=== PATIENT | male | born 1985 | race African-American/Black ===

== ENCOUNTER → 2019-12-12 | Outpatient (CLI) | payer OTHER ==
--- NOTE | 2019-12-12 12:30 | REP ---
Clinical: Testicular pain. Cyst. Technique: Real time green scale and color Doppler evaluation using linear high frequency transducer. Findings: Large right epididymal head cyst likely related to patient's symptoms measures 3.1 x 2.1 x 2.6 cm. The bilateral testicles are normal/symmetric in contour, size, echogenicity, and vascularity and without intratesticular mass lesion, infectious/inflammatory process, or torsion. Right testicle measures 4.7 x 2.5 x 3.6 cm. Left testicle measures 3.7 x 2.3 x 3.1 cm. Left epididymis is normal. No hydrocele. No varicocele. Impression: 3.1 cm right epididymal head cyst.
== END ==
LOC: M PLAIMG 09:38
PROVIDERS: ATTEND Nurse Practitioner Women's Health
DX: L72.0 Epidermal cyst (principal); N50.819 Testicular pain, unspecified

== ENCOUNTER 2020-01-31 10:05 | Day surgery (SDC) | payer OTHER ==
[~2020-01-31] VITALS: Ht 175.3 cm; Wt 73.9 kg
[~2020-01-31 10:05] MED LIST: MIDAZOLAM INJ 2MG/2ML VIAL (J2250 PER 1MG) As Ordered ONE; ONDANSETRON 4MG/2ML VIAL As Ordered ONE; VECURONIUM BROMIDE 10MG VIAL As Ordered ONE; fentaNYL 100 MCG/2 ML INJECTION (J3010) As Ordered ONE
[2020-01-31] MEDS ORDERED: ceFAZolin 2 GM/D5W 50 ML IV BAG (J0690 PER 500MG) As Ordered ONE (10:19)
[2020-01-31] MEDS ORDERED: LIDOCAINE 1% SDV 30ML VIAL As Ordered ONE (10:54)
[2020-01-31] MEDS ORDERED: BACITRACIN OINTMENT 30GM TUBE As Ordered ONE (10:54)
[2020-01-31] MEDS ORDERED: BUPIVACAINE HCL 0.25% 30ML VIAL As Ordered ONE (10:54)
[2020-01-31] MEDS ORDERED: TRAZ-257 PO (11:04)
[2020-01-31] MEDS ORDERED: TIZA4CAP PO (11:04)
[2020-01-31] MEDS ORDERED: AMIT25TA PO (11:04)
[2020-01-31] MEDS ORDERED: NAPR-885 PO (11:04)
[2020-01-31] MEDS: ceFAZolin 2 GM/D5W 50 ML IV BAG (J0690 PER 500MG) IV ONE ×2 (11:13→11:40)
[2020-01-31] MEDS ORDERED: OXYC1TAB23 PO (11:15)
[2020-01-31] MEDS ORDERED: dexameTHASONE 4 MG/ML 1ML VIAL (J1100 PER 1MG) As Ordered ONE (11:36)
[2020-01-31] MEDS ORDERED: fentaNYL 100 MCG/2 ML INJECTION (J3010) ONE ×2 (12:07→13:06)
[2020-01-31] MEDS ORDERED: ONDANSETRON 4MG/2ML VIAL IV PRN (12:45)
[2020-01-31] MEDS ORDERED: PERCOCET 5MG/325MG TAB PO PRN (12:45)
[2020-01-31] MEDS ORDERED: LR 1,000 ML IV SCH (12:45)
[2020-01-31] MEDS ORDERED: ONDANSETRON 4MG/2ML VIAL ONE (13:06)
[2020-01-31] MEDS ORDERED: PERCOCET 5MG/325MG TAB ONE (13:06)
[2020-01-31] MEDS: fentaNYL 100 MCG/2 ML INJECTION (J3010) IV PRN ×2 (13:12→13:30)
[2020-01-31] MEDS ORDERED: PERCOCET 5MG/325MG TAB PO ONE (14:30)
[2020-01-31 14:55] VITALS: BP 136/79
--- NOTE | 2020-03-21 13:20 | RO ---
DATE OF PROCEDURE: January 31, 2020 PRE-PROCEDURE DIAGNOSIS: Right epididymal cyst. POST-PROCEDURE DIAGNOSIS: Right epididymal cyst. PROCEDURE: Removal of right epididymal cyst. SURGEON: Oli Conway MD CONSTRUCTION COST ESTIMATOR: None. ANESTHESIA: General. OPERATIVE INDICATIONS: This is 34-year-old male with a symptomatic 3-cm right epididymal cyst. He was brought to the operating room today for treatment. DESCRIPTION OF PROCEDURE: The patient was brought to the operating room and general anesthesia was induced. Prophylactic antibiotics were infused. He was placed in the supine position and prepped and draped in the usual sterile fashion. At this point, an approximately 3-cm transverse incision was made over the right hemiscrotum. We then dissected down through the scrotal wall layers. The testicle was delivered out of the tunica vaginalis. At this point, the cyst was carefully dissected off using Bovie electrocautery. Once the cyst was dissected down to a small stalk, the stalk was ligated with a 3-0 Vicryl suture. After that was done, the cyst was excised and then the cyst wall was handed off and sent for analysis. At this point, we checked for hemostasis and any areas of bleeding were controlled with electrocautery. The testicle was then delivered back inside the right hemiscrotum in its normal anatomic position. The dartos muscle was then closed with a running 3-0 chromic suture. The skin was closed with interrupted 2-0 chromic sutures. Dressings were then applied. This marked the conclusion of the procedure. The patient was then awakened from anesthesia and transferred to the recovery room in stable condition. ESTIMATED BLOOD LOSS: 5 mL. COMPLICATIONS: None. SPECIMENS: Right epididymal cyst wall. PLAN: The patient will follow up in the clinic in a few weeks for a postoperative visit. CHARITY
== END 2020-01-31 15:02 | disposition home or self-care (01) ==
LOC: M SDC 10:05
PROVIDERS: ATTEND Urology
DX: N50.3 Cyst of epididymis (principal); G43.909 Migraine, unspecified, not intractable, without status migrainosus; F43.10 Post-traumatic stress disorder, unspecified; F41.9 Anxiety disorder, unspecified; F32.9 Major depressive disorder, single episode, unspecified; Z79.899 Other long term (current) drug therapy
CPT/HCPCS: 54830; 88305; J0690; J1100; J2250; J2405; J3010

== ENCOUNTER → 2020-07-12 | Outpatient (REF) | payer OTHER ==
[~2020-07-12] MED LIST changes: +AMIT25TA17 PO; -MIDAZOLAM INJ 2MG/2ML VIAL (J2250 PER 1MG) As Ordered ONE; +NAPR-885 PO; -ONDANSETRON 4MG/2ML VIAL As Ordered ONE; +OXYC1TAB23 PO; +TIZA4CAP PO; +TRAZ-257 PO; -VECURONIUM BROMIDE 10MG VIAL As Ordered ONE; -fentaNYL 100 MCG/2 ML INJECTION (J3010) As Ordered ONE
[2020-07-12 09:54] LABS: SEMEN APPEARANCE OPAQUE (OPAQUE); SEMEN VISCOSITY LIQUID (LIQUID); SEMEN VOLUME 5.5 ml (2.0-5.0)
[2020-07-12 09:55] LABS: SPERM CONCENTRATION 10.5 M/ml (>=15.0); WBC CONCENTRATION <=1 M/ml (<=1 M/ml)
== END ==
LOC: M LAB REF 09:33
PROVIDERS: ATTEND Family Medicine
DX: N46.9 Male infertility, unspecified (principal)

== ENCOUNTER → 2020-09-03 | Outpatient (CLI) | payer OTHER ==
[2020-09-03 09:53] LABS: SEMEN APPEARANCE OPAQUE (OPAQUE); SEMEN VISCOSITY LIQUID (LIQUID); SEMEN VOLUME 4.7 ml (2.0-5.0); SPERM CONCENTRATION 22.1 M/ml (>=15.0); WBC CONCENTRATION <=1 M/ml (<=1 M/ml)
[2020-09-04 10:08] LABS: TESTOSTERONE FREE (DIRECT) 11.7 pg/mL (8.7-25.1)
== END ==
LOC: M LAB 09:12
PROVIDERS: ATTEND Nurse Practitioner Women's Health
DX: N46.9 Male infertility, unspecified (principal)

== ENCOUNTER → 2020-09-06 | Outpatient (CLI) | payer OTHER ==
--- NOTE | 2020-09-06 17:25 | REP ---
INDICATION: TESTICULAR PAIN, UNSPECIFIED. COMPARISON: 12/12/2019. TECHNIQUE: Real-time sonographic evaluation of scrotum and contents performed. FINDINGS: The testicles are normal in size and echotexture, right testicle measuring 4.8 x 2.5 x 2.6 cm and left testicle 4.7 x 2.1 x 2.7 cm. There is no testicular mass or torsion, blood flow is seen in each testicle with duplex Doppler evaluation. Several punctate calcifications are seen in each testicle. 2 subcentimeter cysts are seen in the head of the left epididymis, measuring 3 mm maximally. There is a moderate right hydrocele. Two cystic structures are seen along the head of the right epididymis and spermatic cord, the larger measuring 6 mm. IMPRESSION: No testicular mass or torsion. Moderate right hydrocele. Subcentimeter cysts in the region of the epididymal heads. <Electronically signed by Vasile Soria > 09/06/20 [id number]
== END ==
LOC: M RAD 15:36
PROVIDERS: ATTEND Nurse Practitioner Women's Health
DX: N43.3 Hydrocele, unspecified (principal); N50.3 Cyst of epididymis

== ENCOUNTER → 2020-10-11 | Outpatient (CLI) | payer OTHER ==
[~2020-10-11] MED LIST changes: +ISOVUE-370 76% 100ML VIAL As Ordered ONE
--- NOTE | 2020-10-11 10:36 | REP ---
INDICATION: GROIN PAIN. COMPARISON: None TECHNIQUE: Standard helical technique after the intravenous administration of 100 cc Isovue 370. FINDINGS: The lung bases are clear. The liver, gallbladder, spleen, pancreas, adrenal glands, and right kidney are unremarkable. Arising from the inferior pole the left kidney there is a round 2.7 cm sized smoothly marginated non septated low-density structure which has water density Hounsfield unit readings. The abdominal aorta and para-aortic regions are within normal limits. There is no evidence of a mass or adenopathy. The bowel loops are noncontrast opacified. The bowel loops and the mesenteries appear to be within normal limits. There is no free fluid or free air. There is no inguinal or groin abnormality. Bone window technique throughout the examination shows the osseous structures to be within normal limits. IMPRESSION: CT findings are within normal limits with exception of a simple Bosniak class 1 left renal cyst. <Electronically signed by Klever Arias > 10/11/20 [id number]
== END ==
LOC: M RAD 08:25
PROVIDERS: ATTEND Urology
DX: R10.9 Unspecified abdominal pain (principal)
CPT/HCPCS: 74177; Q9967